=== PATIENT | male | born 1970 | race Caucasian/White ===

== ENCOUNTER 2018-12-21 10:41 | Inpatient (IN) ==
[2018-12-21 10:46] VITALS: BMI 26.6
--- NOTE | 2018-12-21 10:59 | DR.SCROTAL ---
HPI - Time Seen Time seen: 10:59 - PCP Primary Care Physician: DANA - HPI Comment HPI Comment: Developed rt testicular pain three days ago which acutely worsened today; no dysuria, hematuria, abd pain, n/v; no prior hx of such; no trauma. - Complaint Chief Complaint:: PT. C/O RIGHT TESTICULAR PAIN SINCE SATURDAY. PT. STATES HE JUST GOT OVER HAVING KIDNEY STONES AND A UTI. - Source History Provided: Patient - Mode of Arrival Mode of Arrival: Ambulatory - Timing Onset of Chief Complaint: 12/18/18 PMH - PMH Past Medical History: No Past Surgical History: Yes Surgical History: Other Past Surgical History Comment: ELBOW - Family History History of Family Medical Conditions: No - Social History Does patient currently use any type of tobacco product: Yes Have you used tobacco products in the last 12 months: Yes Type of Tobacco Use: Cigarettes Does any household member use tobacco: No Alcohol Use: None Do you use any recreational Drugs:: No Lives [facility] - infectious screening In the last 2 months have you had wt loss of >10#?: NO Have you had fever, night sweats or hemotysis?: No Have you traveled outside the country in the last 6 months?: No Isolation: Standard ROS - Review of Systems Constitutional: See HPI, Malaise Eyes: No Symptoms Reported ENTM: No Symptoms Reported Respiratoy: No Symptoms Reported Cardiovascular: No Symptoms Reported Gastrointestinal/Abdominal: No Symptoms Reported Genitourinary: See HPI Neurological: No Symptoms Reported Musculoskeletal: No Symptoms Reported Integumentary: No Symptoms Reported Hematologic/Lymphatic: No Symptoms Reported Endocrine: No Symptoms Reported Psychiatric: Anxiety PE - General Limitations: Other (in a lot of pain) General Appearance: Alert, Anxious - Head Head Exam: Normal Inspection, Atraumatic - Eyes Eye exam: Normal Appearance - ENT ENT Exam: Normal Exam - Neck Neck Exam: Normal Inspection - Chest Chest Inspection: Normal Inspection - Respiratory Respiratory Exam: Normal Lung Sounds Bilat - Cardiovascular Cardiovascular Exam: Regular Rate - Abdominal Exam Abdominal Exam: Normal Inspection - Genitourinary Exam: Male: Testicular Tenderness (hard [id number] mass rt testicle; inflamed, hard to exam d/t pain), Scrotal Swelling, Induration, Erythema Scrotal Exam: testicular Tenderness: Right, Testicular Swelling: Right, Testicular Mass: Right, Epididymal Tenderness: Right - Extremities Extremities Exam: Normal Inspection, Full ROM - Back Back Exam: Normal Inspection, Full ROM - Neurological Neurological Exam: Alert, Oriented X3 - Psychiatric Psychiatric Exam: Anxious - Vital Signs Vitals: Temperature 97.8 F Pulse Rate [Left Brachial] 86 Pulse Rate 89 Respiratory Rate 17 Blood Pressure [Left Arm] 153/86 Blood Pressure 131/82 O2 Sat by Pulse Oximetry 95 Course - Reevaluation 1st: Improved 2nd: Worsened 3rd: Improved ROR - Labs Reviewed Laboratory Results Reviewed?: Yes Result Diagrams: 12/21/18 11:16 12/21/18 11:16 - Other Results Comments: IMPRESSION: 1. Findings suggesting right-sided epididymo- orchitis. Recommend clinical. correlation and continued close interval follow- up for further evaluation. - XRAY XRAY Interpreted by: Radiologist - Labs Reviewed Laboratory: WBC 26.0 X10^3/uL (3.6-10.0) H 12/21/18 11:16 RBC 4.54 X10^6/uL (4.7-6.0) L 12/21/18 11:16 Hgb 14.1 g/dL (13.5-18.0) 12/21/18 11:16 Hct 41.0 % (42.0-54.0) L 12/21/18 11:16 MCV 90.4 fL (80.0-100.0) 12/21/18 11:16 MCH 31.0 pg (27.0-34.0) 12/21/18 11:16 MCHC 34.3 g/dL (33.0-35.0) 12/21/18 11:16 RDW 13.7 % (11.6-16.5) 12/21/18 11:16 Plt Count 290 X10^3/uL (150.0-450.0) 12/21/18 11:16 Plt Count Comment Adequate (ADEQUATE) 12/21/18 11:16 MPV 8.3 fL (7.4-11.0) 12/21/18 11:16 Neut % (Auto) 88.4 % (42.0-75.0) H 12/21/18 11:16 Lymph % (Auto) 3.2 % (21.0-51.0) L 12/21/18 11:16 [place] % (Auto) 8.0 % (0.0-13.0) 12/21/18 11:16 Eos % (Auto) 0.1 % (0.9-2.9) L 12/21/18 11:16 Baso % (Auto) 0.3 % (0.2-1.0) 12/21/18 11:16 Neut # (Auto) 23.0 x10^3/uL (2.2-4.8) H 12/21/18 11:16 Lymph # (Auto) 0.8 X10^3/uL (1.3-2.9) L 12/21/18 11:16 [place] # (Auto) 2.1 x10^3/uL (0.3-0.8) H 12/21/18 11:16 Eos # (Auto) 0.0 x10^3/uL (0.0-0.2) 12/21/18 11:16 Baso # (Auto) 0.1 X10^3/uL (0.0-0.1) 12/21/18 11:16 Absolute Nucleated RBC 0.0 /100WBC 12/21/18 11:16 Total Counted 100 12/21/18 11:16 Neutrophils % (Manual) 87 % (39-76) H 12/21/18 11:16 Band Neutrophils % 3 % (0-10) 12/21/18 11:16 Lymphocytes % (Manual) 5 % (13-43) L 12/21/18 11:16 Monocytes % (Manual) 5 % (4-9) 12/21/18 11:16 Plt Morphology Comment Normal (NORMAL) 12/21/18 11:16 RBC Morphology Normal (NORMAL) 12/21/18 11:16 Sodium 135 mmol/L (136-145) L 12/21/18 11:16 Corrected Sodium 136 mmol/L (136-145) 12/21/18 11:16 Potassium 4.0 mmol/L (3.5-5.1) 12/21/18 11:16 Chloride 98 mmol/L (98-107) 12/21/18 11:16 Carbon Dioxide 25.3 mmol/L (21-32) 12/21/18 11:16 BUN 14 mg/dL (7-18) 12/21/18 11:16 Creatinine 0.85 mg/dL (0.70-1.30) 12/21/18 11:16 Est GFR (MDRD) Af Amer > 60 (>60) 12/21/18 11:16 Est GFR (MDRD) Non-Af > 60 (>60) 12/21/18 11:16 Glucose 132 mg/dL (65-99) H 12/21/18 11:16 Calcium 9.7 mg/dL (8.5-10.1) 12/21/18 11:16 Corrected Calcium 10.3 mg/dL (8.5-10.1) H 12/21/18 11:16 Total Bilirubin 0.80 mg/dL (0.2-1.0) 12/21/18 11:16 AST 24 Units/L (15-37) 12/21/18 11:16 ALT 44 Units/L (12-78) 12/21/18 11:16 Alkaline Phosphatase 75 Units/L (46-116) 12/21/18 11:16 Total Protein 7.8 g/dL (6.4-8.2) 12/21/18 11:16 Albumin 3.3 g/dL (3.4-5.0) L 12/21/18 11:16 Globulin 4.5 g/dL (2.5-4.5) 12/21/18 11:16 Albumin/Globulin Ratio 0.7 Ratio (1.1-2.1) L 12/21/18 11:16 Specimen Type Random urine 12/21/18 12:16 Urine Color Yellow (YELLOW) 12/21/18 12:16 Urine Appearance Cloudy (CLEAR) 12/21/18 12:16 Urine pH 5.0 (5.0 - 8.0) 12/21/18 12:16 Ur Specific [place] 1.025 (1.000-1.030) 12/21/18 12:16 Urine Protein 1+ (NEGATIVE) 12/21/18 12:16 Urine Glucose (UA) Negative (NEGATIVE) 12/21/18 12:16 Urine Ketones Negative (NEGATIVE) 12/21/18 12:16 Urine Occult Blood 1+ (NEGATIVE) 12/21/18 12:16 Urine Nitrite Negative (NEGATIVE) 12/21/18 12:16 Urine Bilirubin Negative (NEGATIVE) 12/21/18 12:16 Urine Urobilinogen Normal (NORMAL) 12/21/18 12:16 Ur Leukocyte Esterase 2+ (NEGATIVE) 12/21/18 12:16 Urine RBC 3-5 /HPF (0-3) A 12/21/18 12:16 Urine WBC 20-30 /HPF (0-5) A 12/21/18 12:16 Ur Squamous Epith Cells Rare /HPF (NEGATIVE) 12/21/18 12:16 Amorphous Sediment 3+ /HPF (NEGATIVE) 12/21/18 12:16 Urine Bacteria 1+ /HPF (NEGATIVE) 12/21/18 12:16 Urine Mucus Moderate /HPF (NEGATIVE) 12/21/18 12:16 Ur Culture Indicated? No/not indicated 12/21/18 12:16 Opioid - Opioid Risk Tool Age (Joshua box if 16-45): No History of Preadolescent Sexual Abuse: No Total: 0 Total Score Risk Category: Low Risk - Diagnosis Discharge Problem: Orchitis of right testicle, Scrotal edema Leukocytosis Qualifiers: Leukocytosis type: lymphocytosis Qualified Code(s): D72.820 - Lymphocytosis (symptomatic) - Discharge Plan Disposition: 09 ADMITTED INPATIENT Condition: Stable
[2018-12-21] MEDS ORDERED: DILAUDID INJ IVP ONE ×3 (11:04→13:09)
[2018-12-21] MEDS ORDERED: ZOFRAN INJ 4 MG VIAL IVP ONE (11:04)
[2018-12-21] MEDS ORDERED: ZOFRAN INJ 4 MG VIAL ONE (11:08)
[2018-12-21] MEDS ORDERED: DILAUDID INJ ONE ×2 (11:10→12:16)
[2018-12-21 11:27] LABS: BASOPHILS # (AUTO) 0.1 X10^3/uL (0.0-0.1); BASOPHILS % (AUTO) 0.3 % (0.2-1.0); EOSINOPHILS % (AUTO) 0.1 % (0.9-2.9); HEMOGLOBIN 14.1 g/dL (13.5-18.0); LYMPHOCYTES # (AUTO) 0.8 X10^3/uL (1.3-2.9); LYMPHOCYTES % (AUTO) 3.2 % (21.0-51.0); MEAN CORPUSCULAR HGB CONC 34.3 g/dL (33.0-35.0); MEAN CORPUSCULAR VOLUME 90.4 fL (80.0-100.0); MEAN PLATELET VOLUME 8.3 fL (7.4-11.0); MONOCYTES # (AUTO) 2.1 x10^3/uL (0.3-0.8); NEUTROPHILS % (AUTO) 88.4 % (42.0-75.0); PLATELET COUNT 290 X10^3/uL (150.0-450.0); RED BLOOD COUNT 4.54 X10^6/uL (4.7-6.0); RED CELL DISTRIBUTION WIDTH 13.7 % (11.6-16.5)
[2018-12-21 11:40] LABS: ALANINE AMINOTRANSFERASE 44 Units/L (12-78); ALBUMIN 3.3 g/dL (3.4-5.0); ALKALINE PHOSPHATASE 75 Units/L (46-116); ASPARTATE AMINO TRANSFERASE 24 Units/L (15-37); BLOOD UREA NITROGEN 14 mg/dL (7-18); CALCIUM 9.7 mg/dL (8.5-10.1); CARBON DIOXIDE 25.3 mmol/L (21-32); CHLORIDE 98 mmol/L (98-107); COR CA(FOR HYPOALB) 10.3 mg/dL (8.5-10.1); COR NA(FOR HYPERGLY) 136 mmol/L (136-145); CREATININE 0.85 mg/dL (0.70-1.30); SODIUM 135 mmol/L (136-145); TOTAL PROTEIN 7.8 g/dL (6.4-8.2); eGFR NON BLACK RACES > 60 (>60)
[2018-12-21 12:06] LABS: BAND NEUTROPHILS % 3 % (0-10); PLATELET MORPHOLOGY COMMENT NORMAL (NORMAL)
--- NOTE | 2018-12-21 12:20 | US ---
HISTORY: Right testicular pain Study: Ultrasound of the scrotum/testicles Comparison: None Technique: Multiple acosta scale and Doppler images of the right and left testicles were obtained Findings: The right testicle measures 4.8 x 2.7 x 3.3 cm. The right epididymal head measures 2.7 x 1.6 x 2.4 cm. Increased vascular flow is noted within the right testicle and right epididymis. A right-sided hydrocele is noted. The left testicle measures 4.0 x 1.5 x 3.1 cm. The left epididymal head measures 1.0 x 1.0 x 1.1 cm. IMPRESSION: 1. Findings suggesting right-sided epididymo-orchitis. Recommend clinical correlation and continued close interval follow-up for further evaluation. Reported By:
[2018-12-21 12:25] LABS: BILIRUBIN,URINE NEGATIVE (NEGATIVE); BLOOD/HEMOGLOBIN,URINE 1+ (NEGATIVE); GLUCOSE, URINE NEGATIVE (NEGATIVE); KETONES,URINE NEGATIVE (NEGATIVE); LEUKOCYTE ESTERASE ,URINE 2+ (NEGATIVE); NITRITES,URINE NEGATIVE (NEGATIVE); PROTEIN,URINE 1+ (NEGATIVE); UROBILINOGEN,URINE NORMAL (NORMAL)
[2018-12-21 12:36] LABS: APPEARANCE,URINE CLOUDY (CLEAR); COLOR,URINE YELLOW (YELLOW)
[2018-12-21 12:37] LABS: AMORPHOUS SEDIMENT,UR 3+ /HPF (NEGATIVE); BACTERIA,URINE 1+ /HPF (NEGATIVE); SQUAMOUS EPITHELIAL CELL,UR RARE /HPF (NEGATIVE)
[2018-12-21 12:38] LABS: MUCUS,URINE MODERATE /HPF (NEGATIVE)
[2018-12-21] MEDS ORDERED: ZOFRAN INJ 4 MG VIAL IVP PRN (12:45)
[2018-12-21] MEDS: CIPRO IV 400 MG PREMIX* 400 MG/200 ML IV.SOLN. IV SCH ×2 (12:59→21:06)
[2018-12-21] MEDS: NS 1000 ML 1,000 ML IV SCH ×2 (12:59→18:20)
[2018-12-21] MEDS: DILAUDID INJ IVP PRN ×2 (16:16→21:07)
[2018-12-22] MEDS: NS 1000 ML 1,000 ML IV SCH ×5 (00:15→20:50)
[2018-12-22] MEDS: DILAUDID INJ IVP PRN ×5 (00:56→21:07)
[2018-12-22 05:25] LABS: ALANINE AMINOTRANSFERASE 32 Units/L (12-78); ALBUMIN 2.6 g/dL (3.4-5.0); ALKALINE PHOSPHATASE 63 Units/L (46-116); ASPARTATE AMINO TRANSFERASE 17 Units/L (15-37); BLOOD UREA NITROGEN 11 mg/dL (7-18); CALCIUM 8.7 mg/dL (8.5-10.1); CARBON DIOXIDE 26.5 mmol/L (21-32); CHLORIDE 99 mmol/L (98-107); COR CA(FOR HYPOALB) 9.8 mg/dL (8.5-10.1); CREATININE 0.81 mg/dL (0.70-1.30); SODIUM 134 mmol/L (136-145); TOTAL PROTEIN 6.8 g/dL (6.4-8.2); eGFR NON BLACK RACES > 60 (>60)
[2018-12-22] MEDS ORDERED: ZITHROMAX TAB 250 MG PO ONE (09:12)
[2018-12-22] MEDS: CIPRO IV 400 MG PREMIX* 400 MG/200 ML IV.SOLN. IV SCH ×2 (09:13→20:16)
[2018-12-23] MEDS: DILAUDID INJ IVP PRN ×5 (00:54→21:02)
[2018-12-23] MEDS: NS 1000 ML 1,000 ML IV SCH ×2 (04:35→17:02)
[2018-12-23 05:21] LABS: BASOPHILS # (AUTO) 0.1 X10^3/uL (0.0-0.1); BASOPHILS % (AUTO) 0.7 % (0.2-1.0); EOSINOPHILS # (AUTO) 0.3 x10^3/uL (0.0-0.2); EOSINOPHILS % (AUTO) 2.2 % (0.9-2.9); LYMPHOCYTES # (AUTO) 1.6 X10^3/uL (1.3-2.9); MEAN CORPUSCULAR HEMOGLOBIN 30.7 pg (27.0-34.0); MEAN CORPUSCULAR HGB CONC 33.4 g/dL (33.0-35.0); MEAN CORPUSCULAR VOLUME 91.9 fL (80.0-100.0); MEAN PLATELET VOLUME 9.1 fL (7.4-11.0); MONOCYTES # (AUTO) 1.3 x10^3/uL (0.3-0.8); MONOCYTES % (AUTO) 10.3 % (0.0-13.0); NEUTROPHILS # (AUTO) 9.7 x10^3/uL (2.2-4.8); NEUTROPHILS % (AUTO) 74.8 % (42.0-75.0); PLATELET COUNT 220 X10^3/uL (150.0-450.0); RED BLOOD COUNT 3.91 X10^6/uL (4.7-6.0); RED CELL DISTRIBUTION WIDTH 13.4 % (11.6-16.5)
[2018-12-23 05:30] LABS: ALANINE AMINOTRANSFERASE 31 Units/L (12-78); ALBUMIN 2.5 g/dL (3.4-5.0); ALKALINE PHOSPHATASE 59 Units/L (46-116); ASPARTATE AMINO TRANSFERASE 22 Units/L (15-37); BLOOD UREA NITROGEN 13 mg/dL (7-18); CALCIUM 8.7 mg/dL (8.5-10.1); CARBON DIOXIDE 25.9 mmol/L (21-32); CHLORIDE 102 mmol/L (98-107); COR CA(FOR HYPOALB) 9.9 mg/dL (8.5-10.1); CREATININE 0.72 mg/dL (0.70-1.30); SODIUM 135 mmol/L (136-145); TOTAL PROTEIN 6.8 g/dL (6.4-8.2); eGFR NON BLACK RACES > 60 (>60)
[2018-12-23] MEDS: CIPRO IV 400 MG PREMIX* 400 MG/200 ML IV.SOLN. IV SCH ×2 (08:42→20:42)
[2018-12-23] MEDS: COLACE CAP 100 MG PO PRN (10:30)
[2018-12-23] MEDS: MILK OF MAGNESIA PO PRN (10:30)
[2018-12-24] MEDS: DILAUDID INJ IVP PRN ×4 (01:11→13:10)
[2018-12-24] MEDS: COLACE CAP 100 MG PO PRN (02:58)
[2018-12-24] MEDS: MILK OF MAGNESIA PO PRN (02:58)
[2018-12-24] MEDS: NS 1000 ML 1,000 ML IV SCH (05:03)
[2018-12-24 05:32] LABS: BASOPHILS % (AUTO) 0.5 % (0.2-1.0); EOSINOPHILS # (AUTO) 0.4 x10^3/uL (0.0-0.2); EOSINOPHILS % (AUTO) 4.3 % (0.9-2.9); HEMATOCRIT 34.1 % (42.0-54.0); HEMOGLOBIN 11.4 g/dL (13.5-18.0); LYMPHOCYTES # (AUTO) 1.4 X10^3/uL (1.3-2.9); LYMPHOCYTES % (AUTO) 17.4 % (21.0-51.0); MEAN CORPUSCULAR HEMOGLOBIN 30.9 pg (27.0-34.0); MEAN CORPUSCULAR HGB CONC 33.5 g/dL (33.0-35.0); MEAN CORPUSCULAR VOLUME 92.4 fL (80.0-100.0); MEAN PLATELET VOLUME 9.9 fL (7.4-11.0); MONOCYTES % (AUTO) 12.4 % (0.0-13.0); NEUTROPHILS # (AUTO) 5.3 x10^3/uL (2.2-4.8); NEUTROPHILS % (AUTO) 65.4 % (42.0-75.0); PLATELET COUNT 257 X10^3/uL (150.0-450.0); RED BLOOD COUNT 3.69 X10^6/uL (4.7-6.0); RED CELL DISTRIBUTION WIDTH 13.4 % (11.6-16.5); WHITE BLOOD COUNT 8.1 X10^3/uL (3.6-10.0)
[2018-12-24 05:54] LABS: ALANINE AMINOTRANSFERASE 39 Units/L (12-78); ALBUMIN 2.4 g/dL (3.4-5.0); ALKALINE PHOSPHATASE 63 Units/L (46-116); ASPARTATE AMINO TRANSFERASE 33 Units/L (15-37); BLOOD UREA NITROGEN 9 mg/dL (7-18); CALCIUM 8.6 mg/dL (8.5-10.1); CHLORIDE 104 mmol/L (98-107); COR CA(FOR HYPOALB) 9.9 mg/dL (8.5-10.1); CREATININE 0.73 mg/dL (0.70-1.30); SODIUM 138 mmol/L (136-145); TOTAL PROTEIN 6.5 g/dL (6.4-8.2); eGFR NON BLACK RACES > 60 (>60)
[2018-12-24] MEDS: CIPRO IV 400 MG PREMIX* 400 MG/200 ML IV.SOLN. IV SCH (08:55)
[2018-12-24 13:59] VITALS: BP 122/79
== END 2018-12-24 13:35 | disposition home or self-care (01) | DRG 728 ==
LOC: ER 10:43 → MED/SURG 12:56
PROVIDERS: ADMIT Family Medicine; ATTEND Obstetrics & Gynecology Obstetrics
DX: N50.811 Right testicular pain; N45.3 Epididymo-orchitis; D72.828 Other elevated white blood cell count
CPT/HCPCS: 36415; 76870; 80053; 81001; 83605; 85025; 87040; 87086; 87088; 87186; 87491; 87591; 96365; 96374; 96375; 99284; A4222; Q0144; J0744; J1170; J2405; J7030